=== PATIENT | female | born 1945 | race Caucasian/White ===

== ENCOUNTER 2017-07-14 08:28 | Inpatient (IN) | payer MEDICARE, BC ==
[2017-07-14 09:06] LABS: BASOPHILS % (AUTO) 0 % (0-3); EOSINOPHILS % (AUTO) 0 % (0-9); HEMATOCRIT 32 % (35-47); MEAN CORPUSCULAR HGB CONC 35.5 gm/dl (32.0-36.0); MEAN CORPUSCULAR VOLUME 85 fL (81-99); MONOCYTES % (AUTO) 4.3 % (0-12); NEUTROPHILS % (AUTO) 86.5 % (37-80)
[2017-07-14 09:17] LABS: CALCIUM 7.9 mg/dl (8.5-10.1); POTASSIUM 3.5 mMol/L (3.5-5.1)
[2017-07-14] MEDS ORDERED: ACETAMINOPHEN 325 MG ONE (09:23)
[2017-07-14] MEDS ORDERED: SODIUM CHLORIDE 0.9% 500 ML 500 ML IV ONE ×2 (09:30→10:14)
[2017-07-14] MEDS ORDERED: SODIUM CHLORIDE 0.9% FLUSH 10 ML SOL IV PRN (10:12)
[2017-07-14] MEDS ORDERED: ACETAMINOPHEN 325 MG PO ONE (10:12)
[2017-07-14] MEDS ORDERED: ALBUTEROL NEB SOL 2.5MG/3ML 1 VIAL SOL NEB PRN (12:03)
[2017-07-14] MEDS: CEFTRIAXONE 1 GM (PREMIX) 1 GM/50 ML SOL IV SCH (13:30)
[2017-07-14] MEDS: ALBUTEROL/IPRATROPIUM 1 VIAL SOL INH SCH ×2 (14:04→18:55)
[2017-07-14] MEDS: SODIUM CHLORIDE/KCL 20MEQ 1,000 ML IV SCH ×2 (14:11→20:09)
[2017-07-14] MEDS: ACETAMINOPHEN 325 MG PO PRN ×2 (14:30→21:39)
[2017-07-14] MEDS ORDERED: ACETAMINOPHEN 500 MG 500 MG TAB PO PRN (15:15)
[2017-07-14] MEDS ORDERED: DIPHENHYDRAMINE 25 MG CAP PO PRN (15:16)
[2017-07-14] MEDS: ENOXAPARIN 40 MG SOL SC SCH (20:18)
[2017-07-14] MEDS: AZITHROMYCIN 250 MG TAB PO SCH (20:20)
[2017-07-14] MEDS ORDERED: SIMVASTATIN 20 MG TAB PO SCH (21:00)
[2017-07-15] MEDS: ALBUTEROL/IPRATROPIUM 1 VIAL SOL INH SCH ×3 (00:04→12:39)
[2017-07-15] MEDS: SODIUM CHLORIDE/KCL 20MEQ 1,000 ML IV SCH ×2 (02:05→08:09)
[2017-07-15] MEDS: ACETAMINOPHEN 325 MG PO PRN (02:05)
[2017-07-15 07:18] LABS: POTASSIUM 4.3 mMol/L (3.5-5.1)
[2017-07-15 07:22] LABS: BASOPHILS % (AUTO) 0 % (0-3); EOSINOPHILS % (AUTO) 0 % (0-9); HEMATOCRIT 28 % (35-47); MEAN CORPUSCULAR VOLUME 87 fL (81-99); MONOCYTES % (AUTO) 2.9 % (0-12); NEUTROPHILS % (AUTO) 87.8 % (37-80)
[2017-07-15] MEDS ORDERED: FUROSEMIDE 40 MG SOL IV ONE (08:21)
[2017-07-15] MEDS ORDERED: SOLUMEDROL 125 MG/2 ML 125 MG/2 ML PDS IV SCH (08:30)
[2017-07-15 08:40] LABS: ABG PH 7.41 (7.35-7.45)
[2017-07-15] MEDS ORDERED: FAMOTIDINE 20 MG TAB PO PRN (09:00)
[2017-07-15] MEDS ORDERED: SODIUM CHLORIDE 0.9% 1000ML 1,000 ML IV SCH (09:15)
[2017-07-15] MEDS: ENOXAPARIN 40 MG SOL SC SCH (09:35)
[2017-07-15] MEDS: AZITHROMYCIN 250 MG TAB PO SCH (09:36)
[2017-07-15] MEDS: CEFTRIAXONE 1 GM (PREMIX) 1 GM/50 ML SOL IV SCH (12:39)
[2017-07-15 12:41] LABS: ABG PH 7.36 (7.35-7.45)
[2017-07-15 13:05] LABS: ABG PH 7.41 (7.35-7.45)
[2017-07-15 13:21] VITALS: RESP 36
[2017-07-15 16:13] VITALS: BP 118/67; PULSE 103; TEMP 99.8; O2SAT 92
== END 2017-07-15 14:55 | disposition short-term general hospital (02) | DRG 194 ==
LOC: ED 08:28 → ACUTE CARE 10:24 → UNDOADMIN 10:24 → ACUTE CARE 10:43
PROVIDERS: ADMIT Family Medicine; ATTEND Family Medicine
DX: J18.1 Lobar pneumonia, unspecified organism (principal); R06.82 Tachypnea, not elsewhere classified; E87.1 Hypo-osmolality and hyponatremia; I10 Essential (primary) hypertension; E78.00 Pure hypercholesterolemia, unspecified; Z72.0 Tobacco use; E86.0 Dehydration
CPT/HCPCS: 36415; 36600; 71020; 80048; 82803; 83880; 84484; 85025; 87040; 87804; 94150; 94640; 94664; 94760; 96365; 99284; J0696; J1650; J1940; J2930; J7620

== ENCOUNTER 2017-07-20 12:40 | Emergency (ER) | payer MEDICARE, BC ==
[2017-07-20] MEDS: SODIUM CHLORIDE 0.9% FLUSH 10 ML SOL IV PRN ×2 (12:50→13:50)
[2017-07-20] MEDS ORDERED: ALBUTEROL/IPRATROPIUM 1 VIAL SOL INH ONE (12:54)
[2017-07-20 12:58] LABS: BASOPHILS % (AUTO) 1 % (0-3); EOSINOPHILS % (AUTO) 0 % (0-9); HEMATOCRIT 28 % (35-47); MEAN CORPUSCULAR VOLUME 87 fL (81-99); MONOCYTES % (AUTO) 6.2 % (0-12); NEUTROPHILS % (AUTO) 87.5 % (37-80)
[2017-07-20] MEDS ORDERED: ALBUTEROL/IPRATROPIUM 1 VIAL SOL ONE (13:00)
[2017-07-20 13:08] LABS: CALCIUM 8.8 mg/dl (8.5-10.1); POTASSIUM 3.7 mMol/L (3.5-5.1)
[2017-07-20] MEDS ORDERED: SOLUMEDROL 125 MG/2 ML 125 MG/2 ML PDS IV ONE (13:43)
[2017-07-20] MEDS ORDERED: SOLUMEDROL 125 MG/2 ML 125 MG/2 ML PDS ONE (13:44)
[2017-07-20] MEDS ORDERED: CODEINE/GUAIFENESIN 5 ML SOL PO ONE ×2 (13:57→14:01)
[2017-07-20] MEDS ORDERED: CODEINE/GUAIFENESIN 5 ML SOL ONE ×2 (14:00→14:06)
[2017-07-20] MEDS ORDERED: LORAZEPAM 0.5 MG TAB PO ONE (14:06)
[2017-07-20] MEDS ORDERED: LORAZEPAM 0.5 MG TAB ONE (14:11)
[2017-07-20 15:26] VITALS: BP 135/72; PULSE 81; RESP 16; TEMP 97.5; O2SAT 92
== END 2017-07-20 16:12 | disposition home or self-care (01) | DRG 195 ==
LOC: ED 12:40
DX: J18.9 Pneumonia, unspecified organism (principal)
CPT/HCPCS: 71010; 80048; 83880; 85025; 93005; 99285; J2930; J7620

== ENCOUNTER 2018-02-02 12:52 | Day surgery (SDC) | payer MEDICARE, BC ==
[2018-02-02] MEDS ORDERED: DEXAMETHASONE SOD PHOS PF 10 MG/ML SOL IJ ONE (14:00)
[2018-02-02] MEDS ORDERED: BUPIVACAINE HCL 0.25% MPF 30 ML SOL INFIL ONE (14:00)
[2018-02-02 14:40] VITALS: BP 120/55; PULSE 68; RESP 12; TEMP 97.6; O2SAT 96
== END 2018-02-02 14:57 | disposition home or self-care (01) | DRG 552 ==
LOC: SURG 12:52
PROVIDERS: ATTEND Nurse Anesthetist, Certified Registered
DX: M54.5 Low back pain (principal)
CPT/HCPCS: J1100

== ENCOUNTER 2018-03-10 13:16 | Day surgery (SDC) | payer MEDICARE, BC ==
[2018-03-10] MEDS ORDERED: BUPIVACAINE HCL 0.5% MPF 10 ML SOL ONE (13:54)
[2018-03-10 14:30] VITALS: BP 122/58; PULSE 67; RESP 18; TEMP 97.8; O2SAT 100
== END 2018-03-10 14:51 | disposition home or self-care (01) | DRG 552 ==
LOC: SURG 13:16
PROVIDERS: ATTEND Nurse Anesthetist, Certified Registered
DX: M54.5 Low back pain (principal); M47.16 Other spondylosis with myelopathy, lumbar region

== ENCOUNTER 2018-07-07 13:04 | Day surgery (SDC) | payer MEDICARE, BC ==
[2018-07-07] MEDS: PHENYLEPHRINE HCL 10% OPHTHAL SOL ONE ×3 (13:17→13:29)
[2018-07-07] MEDS: CYCLOPENTOLATE 1% SOL ONE ×3 (13:18→13:29)
[2018-07-07] MEDS: TROPICAMIDE 1% OPHTH SOL ONE ×3 (13:18→13:29)
[2018-07-07] MEDS ORDERED: KETOROLAC/HOME 0.5% SOL RIGHTEYE ONE ×3 (13:19→13:30)
[2018-07-07] MEDS ORDERED: MOXIFLOXACIN-HOME SOL RIGHTEYE ONE ×2 (13:19→13:26)
[2018-07-07 13:22] VITALS: TEMP 98.2
[2018-07-07] MEDS: TETRACAINE HCL 0.5 % 1 DROP SOL ONE ×2 (13:31→14:36)
[2018-07-07] MEDS ORDERED: MIDAZOLAM 2 MG/2 ML SOL ONE (14:15)
[2018-07-07] MEDS ORDERED: BSS W/ 0.5 MG P.F. EPI 1 BOTTLE ONE (14:26)
[2018-07-07] MEDS ORDERED: POVIDONE IODINE 5% SOL ONE (14:26)
[2018-07-07] MEDS ORDERED: LIDOCAINE HCL 2% MPF 10 ML SOL ONE (14:26)
[2018-07-07 15:02] VITALS: BP 146/89; PULSE 62; RESP 20; O2SAT 100
== END 2018-07-07 15:24 | disposition home or self-care (01) | DRG 125 ==
LOC: SURG 13:04
PROVIDERS: ATTEND Ophthalmology
DX: H25.89 Other age-related cataract (principal)
CPT/HCPCS: J2250; A9270-GY

== ENCOUNTER 2018-07-21 11:50 | Day surgery (SDC) | payer MEDICARE, BC ==
[~2018-07-21 11:50] MED LIST: MIDAZOLAM 2 MG/2 ML SOL ONE
[2018-07-21] MEDS: TROPICAMIDE 1% OPHTH SOL ONE ×3 (12:13→12:27)
[2018-07-21] MEDS: CYCLOPENTOLATE 1% SOL ONE ×3 (12:13→12:27)
[2018-07-21] MEDS: PHENYLEPHRINE HCL 10% OPHTHAL SOL ONE ×3 (12:13→12:27)
[2018-07-21] MEDS ORDERED: MOXIFLOXACIN-HOME SOL LEFTEYE ONE ×2 (12:14→12:18)
[2018-07-21] MEDS ORDERED: KETOROLAC/HOME 0.5% SOL LEFTEYE ONE ×3 (12:14→12:28)
[2018-07-21 12:20] VITALS: O2SAT 97
[2018-07-21] MEDS: TETRACAINE HCL 0.5 % 1 DROP SOL ONE ×2 (12:28→13:24)
[2018-07-21] MEDS ORDERED: BSS W/ 0.5 MG P.F. EPI 1 BOTTLE ONE (13:16)
[2018-07-21] MEDS: POVIDONE IODINE 5% SOL ONE ×2 (13:27→13:30)
[2018-07-21] MEDS: LIDOCAINE HCL 2% MPF 10 ML SOL ONE ×2 (13:27→13:35)
[2018-07-21 13:53] VITALS: BP 139/67; PULSE 64; RESP 18; TEMP 97.4
== END 2018-07-21 14:12 | disposition home or self-care (01) | DRG 125 ==
LOC: SURG 11:50
PROVIDERS: ATTEND Ophthalmology
DX: H25.89 Other age-related cataract (principal)
CPT/HCPCS: J2250; A9270-GY